=== PATIENT | male | born 1965 | race Caucasian/White ===

== ENCOUNTER → 2023-12-26 10:29 | Outpatient (CLI) | payer OTHER, SELFPAY ==
--- NOTE | 2023-12-26 10:32 | DI.CT.S_ITS ---
PROCEDURE: CT UE LT WO CON INDICATIONS: Primary osteoarthritis, left shoulder TECHNIQUE: Noncontrast 0.75 mm thick sections acquired from the acromioclavicular joint to the inferior scapula, with coronal and sagittal reformatting. For radiation dose reduction, the following was used: automated exposure control, adjustment of mA and/or kV according to patient size. COMPARISON: [facility], MR, MR SHOULDER LT WO CON, 12/26/2023, 10:40. [facility] Outside Film, CR, XR SHOULDER 2+ VIEWS LEFT, 01/04/2023, 9:49. FINDINGS: Image quality: Excellent. Bones: No acute osseous fracture or dislocation. Severe degenerative changes are seen at the glenohumeral joint with full-thickness joint space narrowing, subchondral sclerosis, subchondral cystic changes, marginal osteophyte formation, and remodeling of the articular surfaces. There is approximately 12 degrees glenoid retroversion relative to the midplane of the scapula at the mid glenoid level. Moderate acromioclavicular joint osteoarthrosis. An unfused os acromiale is seen with mild degenerative changes at the synchondrosis. Degenerative changes are seen at the included spine. Included ribs are intact. Soft tissues: Small glenohumeral effusion. No calcified intra-articular loose body is seen. The tendons, ligaments, articular cartilages, and labrum are not well evaluated with CT. Included portions of the lung are clear. No axillary lymphadenopathy. IMPRESSION: 1. Severe glenohumeral osteoarthrosis with remodeling of the articular surfaces resulting in 12 degrees glenoid retroversion relative to the midplane of the scapula at the mid glenoid level. 2. Small glenohumeral effusion. 3. Moderate acromioclavicular joint osteoarthrosis. Unfused os acromiale. Approved by: Herve Diez M.D. on 12/27/2023 at 13:50
--- NOTE | 2023-12-26 10:32 | DI.MRI.S_ITS ---
PROCEDURE: MR SHOULDER LT WO CON INDICATIONS: Primary osteoarthritis, left shoulder TECHNIQUE: Noncontrast oblique coronal T2 fast spin echo with fat saturation, oblique sagittal T1 spin echo and T2 fast spin echo with fat saturation, axial T1 spin echo and T2 fast spin echo with fat saturation through the shoulder. COMPARISON: [facility] Outside Film, CR, XR SHOULDER 2+ VIEWS LEFT, 01/04/2023, 9:49. FINDINGS: Image quality: Excellent. Rotator cuff: Mild tendinosis of the supraspinatus and infraspinatus, without tear. The teres minor is unremarkable. The subscapularis is intact. No muscle edema or fatty atrophy. Bones and bursae: No significant degenerative changes of the acromioclavicular joint. Type 1 acromion. No os acromiale. Trace subacromial/subdeltoid bursitis. Severe degenerative changes of the glenohumeral joint with mild flattening of the humeral head, and remodeling of the glenoid. There is extensive subchondral cystic changes with marrow edema of the humeral head, and of the glenoid. Mild osteophytosis of the humeral head. No acute fracture. Capsule and soft tissues: Diffuse labral degeneration and tear. Multiple small paralabral cyst about the anterior inferior labrum, measuring up to 1.0 cm. Moderate tenosynovitis of the extra-articular biceps tendon. The extra-articular biceps tendon is intact. Moderate tendinosis of the distal intra-articular biceps tendon. Small glenohumeral effusion. Mild subcoracoid bursitis. IMPRESSION: 1. Severe degenerative changes of the glenohumeral joint. 2. Mild tendinosis of the supraspinatus and infraspinatus, without tear. 3. Diffuse labral tear with multiple small paralabral cysts. 4. Moderate tenosynovitis of the extra-articular biceps tendon. Moderate tendinosis of the distal intra-articular biceps tendon. Dictated by: Dolores Garcia M.D. on 12/26/2023 at 13:43 Approved by: Dolores Garcia M.D. on 12/26/2023 at 13:50
== END ==
PROVIDERS: Referring Provider Orthopaedic Surgery; Visit Provider Orthopaedic Surgery
DX: M19.012 Primary osteoarthritis, left shoulder (principal); S43.432A Superior glenoid labrum lesion of left shoulder, initial encounter; M75.22 Bicipital tendinitis, left shoulder; M25.412 Effusion, left shoulder; M75.52 Bursitis of left shoulder
CPT/HCPCS: 73200; 73221

== ENCOUNTER 2024-02-16 06:06 | Day surgery (SDC) | payer OTHER, SELFPAY ==
[2024-02-15 07:41] VITALS: BMI 33.2
[2024-02-16] VITALS (7 sets, daily range): BP systolic 138–158; BP diastolic 87–100; PULSE 68–90; RESP 16; TEMP 36.2–37.1; O2SAT 94–98; BMI 33.2
[2024-02-16] MEDS: ACETAMINOPHEN 325 MG TABLET 975 MG PO (07:01)
[2024-02-16] MEDS: LACTATED RINGERS 1,000 ML 42 ML IV (07:03)
--- NOTE | 2024-02-16 07:43 | PM.HP.1 ---
History of Present Illness History of Present Illness Date Patient Seen: 02/16/24 Time Patient Seen: 07:43 Chief complaint: SDC Narrative: This is a 58-year-old male here for anatomic total shoulder replacement. No changes in his symptoms since I last saw him in clinic [facility] Medical History (Updated 02/15/24 @ 08:05 by Chelsea Diaz RN) Psoriasis Osteoarthritis Psoriatic arthritis HTN (hypertension) Surgical History (Updated 02/15/24 @ 08:05 by Chelsea Diaz RN) History of surgery Hx of knee surgery (~1997) Hx of tonsillectomy Hx of hernia repair Hx of appendectomy Social History household members: spouse Smoking Status: Former smoker alcohol intake: current Meds Home Medications and Allergies Home Medications Medication Instructions Recorded Confirmed Type losartan 25 mg tablet 25 mg PO DAILY 02/15/24 02/16/24 History Allergies Allergy/AdvReac Type Severity Reaction Status Date / Time No Known Drug Allergies Allergy Verified 02/16/24 06:40 Review of Systems Review of Systems ROS: Yes All systems reviewed with the patient and are negative except as otherwise documented Exam Vital Signs (past 8 hours): - 02/16/24 06:41 Temperature 98.7 F Pulse Rate 68 Respiratory Rate 16 Blood Pressure 158/98 H Pulse Oximetry 98 Oxygen Delivery Method Room Air Oxygen Delivery Method Room Air Narrative Exam Narrative: HEENT: Head atraumatic eyes anicteric moist mucous membranes Cardiovascular: Palpable peripheral pulses extremities are warm and well perfused Respiratory: Breathing comfortably on room air Psychiatric: Appropriate mood and affect Neuro: No acute deficits Musculoskeletal: Exam of the left upper extremity demonstrates no skin lesions or deformities. Still having pain with forward elevation. 5/5 strength. Assessment & Plan Assessment & Plan narrative: Assessment: 58-year-old male with left glenohumeral arthritis Plan: Anatomic total shoulder arthroplasties today with inlay glenoid. Risks and benefits of surgery were discussed again including the risk of infection, damage to internal structures, bleeding, nerve injury, instability, need for revision surgery, blood clots, anesthesia and . No guarantees were made regarding outcomes. Patient expressed understanding and accepted these risks and wished to go forward with surgery and consent was signed. Time-Based Coding :: [TOTAL MINUTES] spent with patient and on the chart (including review of chart, obtaining history, exam, reviewing outside data, placing orders, documenting exam and treatment plan, and counseling patient) on [DATE].
--- NOTE | 2024-02-16 07:51 | SUR.OPER ---
Beach chair with Nancy/Anant shoulder positioner. Lower body on padded OR bed. Head in foam padded head cradle, secured with straps. Non-operative arm secured on padded armboard. Pillow under knees. Safety belt at thigh. Cloth tape over blanket over lower legs.
[2024-02-16] MEDS: TRANEXAMIC ACID 1,000 MG VIAL 1000 MG INJ (07:55)
[2024-02-16] MEDS: CEFAZOLIN 2 GM/100 ML PREMIX 100 ML IV (08:00)
[2024-02-16] MEDS: BUPIVACAINE 0.25% (PF) 30 ML, EPINEPHrine 0.15 MG INJ (08:31)
--- NOTE | 2024-02-16 09:56 | P.OP_ITS ---
Operative Date/Time/Diagnoses Date of procedure: 02/16/24 Time of procedure: 09:56 Pre-op diagnosis: Left glenohumeral arthritis Post-op diagnosis: same Procedure & Clinicians Procedure: Left anatomic total shoulder arthroplasty with inlay glenoid Same procedure as scheduled: Yes Indications: Indications: This is a 58-year-old male who has primary osteoarthritis of the glenohumeral joint. Symptoms have been present for years, insidious onset. Patient has failed conservative therapy including injections, physical therapy, anti-inflammatories and activity modification. After extensive discussion in clinic, they wished to go forward with surgery. Risks and benefits were described including the risk of infection, bleeding, damage to internal structures including nerves. We also discussed the risk of failure of surgery and the need for revision surgery as well as the risk of anesthesia. The patient expressed understanding with these risks and wished to go forward with surgery. Surgeon: Charles Del Valle Click Yes if Unassisted: Yes Anesthesia Type: General Operative Notes Findings: Findings: Osteoarthritis of the glenoid and humeral head as noted on preoperative imaging and under direct visualization Closure Type: primary Specimen(s): none sent Prosthetic devices, grafts, tissues, transplants, or devices: Inlay glenoid (arthro surface) Tornier Simpliciti Nucleus Size 2 Simpliciti CoCr head size 50 x 19 Estimated Blood Loss (mL): 100 Blood products transfused: none Procedure in detail: Operative note: Patient was seen in the preoperative holding unit. The correct left shoulder was identified and marked with my initials. Again we discussed the risks and benefits of surgery and they wished to go forward with surgery. The patient was brought back to the operating room and placed supine on the operating table. he underwent smooth endotracheal intubation. All prominences were padded and they were placed into the beach chair position. Intravenous antibiotics were given. The left shoulder was then prepped with the standard sterile preparation and draping. A time-out was then performed in my initials were again identified on the correct shoulder. 1 g of IV tranexamic acid was given. A standard deltopectoral incision was made. Skin flaps were made. The cephalic vein was identified and retracted laterally. This was protected throughout the remainder of the case. Sharp dissection was made along the deltoid, subacromial and subcoracoid space to release adhesions. The conjoined tendon was identified and the axillary nerve was palpated and continuous using the tug test. It was protected throughout the remainder of the case. A brown retractor was placed underneath the deltoid muscle and a darach retractor underneath the conjoint tendon. The anterior circumflex artery and associated veins on the lower border of the subscapularis were identified and tied off using 0-Vicryl. The biceps tendon was identified in the bicipital groove. This was released from its sheath, and taken from its origin on the glenoid and tied into the pectoralis tendon for a solid tenodesis. We then began a subscapularis peel. The subscapularis was tagged with an Ethibond suture. A 360 degree circumferential release of the subscapularis was performed with protection of the axillary nerve. The coracohumeral ligament was released at the base of the coracoid. The coracoacromial ligament was left intact. The shoulder was then dislocated. Osteophytes were removed using combination of rongeur and osteotome. The rotator cuff was noted to be intact. Using an oscillating saw a conservative humeral head cut was made using the patient's [place] version. The head was measured and a guide for size 2 nucleus was used to drill a central hole followed by impaction. Attention was then turned to the glenoid. After retracting the humeral head posteriorly, minimal release was done. A angled guide was used to drill a center guide pin followed by a Reamer. Small check pilot holes were drilled around the periphery and the center drill hole was performed with a flexible drill bit. The final polyethylene implant was then impacted with cement and held until it was completely dried. Turning back to the humerus, the humeral head was delivered and 3 seperate [place]es were passed through drill holes through the lesser tuberosity into the bicipital groove. The nucleus was then impacted into the humerus and a size 50 stemless humeral head was placed. The shoulder was then reduced and again brought through range of motion and was felt to be stable. The interval was then closed using #2 ethibond. The subscapularis was then repaired using a modified racking hitch with niece loupes. The skin was closed with 2-0 PDS and Monocryl followed by Aquacel dressing. Patient was awoken from anesthesia and brought back to the postoperative recovery unit without issue. They were placed into a sling. Assisting participation: This operation could not have been safely performed (without compromising the technical results or length of the procedure) without the assistance of a skilled surgical clinical reviewer. The surgical clinical reviewer was medically necessary for proper positioning, retraction and manipulation of instruments, proper exposure, graft prep, and manipulation of tissue. Complications: none Post-operative Condition: stable Disposition: PACU Plan for aftercare: Postoperative instructions: Sling to remain on for 6 weeks. No external rotation past neutral for 6 weeks. Okay for sling to come off for shower and gentle pendulum exercises. Okay to shower over the Aquacel dressing. If any water gets underneath the dressing, remove the dressing. First postoperative visit in 2 weeks.
[2024-02-16] MEDS: KETOROLAC 30 MG/ML VIAL 15 MG IV (10:05)
[2024-02-16] MEDS: OXYCODONE IR 5 MG TABLET PO ×2 (10:09→10:44)
--- NOTE | 2024-02-16 10:22 | DI.RAD.S_ITS ---
PROCEDURE: XR SHOULDER LT 1V INDICATIONS: LEFT TOTAL SHOULDER TECHNIQUE: 1 views of the shoulder were acquired. COMPARISON: None. FINDINGS: Bones: Patient is status post left shoulder arthroplasty. Shoulder alignment is anatomic. No acute fracture or dislocation. Soft tissues: Expected postsurgical changes in superior and lateral left shoulder soft tissue. IMPRESSION: Postop changes from left shoulder arthroplasty with anatomic shoulder alignment. Dictated by: Primo Wheatley M.D. on 02/16/2024 at 16:16 Approved by: Primo Wheatley M.D. on 02/16/2024 at 16:16
== END 2024-02-16 11:04 | disposition home or self-care (01) ==
PROVIDERS: Referring Provider Orthopaedic Surgery; Visit Provider Orthopaedic Surgery
PROC: (CPT 23472; principal; 2024-02-16 07:45)
DX: M19.012 Primary osteoarthritis, left shoulder (principal); G89.18 Other acute postprocedural pain; M25.712 Osteophyte, left shoulder
CPT/HCPCS: 23472; 64415; 73020; C1776; J0171; J0690; J1100; J1885; J2250; J2405; J2704; J3010